=== PATIENT | male | born 1950 | race Caucasian/White ===

== ENCOUNTER → 2018-05-31 | Outpatient (CLI) | payer MEDICARE, OTHER ==
[2018-03-08 13:16] VITALS: BP 110/70
[~2018-05-31] MED LIST: DOXY100C2 PO; MELO15TA23 PO; PANT40GR PO; SIMV40TA3 PO; TAMS0.4C2 PO; VARE1TAB21 PO
--- NOTE | 2018-06-01 12:53 | KCIC ---
Examination: MRI of the left shoulder without contrast HISTORY: History of the tear of the left rotator cuff, left shoulder pain COMPARISON: None available TECHNIQUE: Multidetector, multisequence MR imaging of the left shoulder were performed with contrast. Findings: The long head of the biceps tendon is within the bicipital groove. There is moderate increased signal identified in the intra-articular portion of the biceps tendon likely tendinosis. Examination is very limited due to significant motion artifact. There is increased T2 signal identified in the supraspinatus, infraspinous tendon likely tendinosis. The anterior fibers of the supraspinatus tendon appear intact however the posterior half of the supraspinatus tendon and the anterior one third of the infraspinatus tendons are torn. . There is a mild superior translation of the humerus head in relation to glenoid. Moderate degenerative changes identified in the glenohumeral joint. There is a fatty atrophic changes with muscle bulk loss identified in the supraspinatus, infraspinous muscles. There is obscuration of fat in the rotator interval. The acromion is type II. Impression: 1. There is likely high-grade partial tear of the supraspinatus, infraspinatus tendons. Examination is difficult due to motion artifact. There is fatty atrophic changes and muscle bulk loss identified in the supraspinatus, infraspinatus muscles. There is a superior translation of the humerus head in relation to the glenoid. 2. Obscuration of fat in the rotator interval likely adhesive capsulitis. 3. Moderate degenerative changes identified in the acromioclavicular joint, glenohumeral joint. Electronically signed by: Brent Pantoja MD (06/01/2018 12:50 PM) [id number]
== END | disposition home or self-care (01) ==
LOC: KCIC MRI 15:03
PROVIDERS: ATTEND Orthopaedic Surgery
DX: S46.012D Strain of muscle(s) and tendon(s) of the rotator cuff of left shoulder, subsequent encounter (principal); M19.012 Primary osteoarthritis, left shoulder; X58.XXXD Exposure to other specified factors, subsequent encounter
CPT/HCPCS: 73221

== ENCOUNTER 2020-12-23 06:05 | Day surgery (SDC) | payer MEDICARE, OTHER ==
[~2020-12-23] VITALS: Ht 185.4 cm; Wt 97.7 kg
[~2020-12-23 06:05] MED LIST changes: +SIMV40TA18 PO; -SIMV40TA3 PO
[2020-12-23 06:24] VITALS: BP 102/72
[2020-12-23] MEDS ORDERED: LIDOCAINE 2% PF 5 ML VIAL. ONE (06:45)
[2020-12-23] MEDS ORDERED: PROPOFOL 10 MG/ML (20ML) VIAL. IV ONE (06:45)
[2020-12-23] MEDS ORDERED: IV RINGERS,LACTATED 1000ML 1,000 ML IV SCH (07:00)
[2020-12-23 07:55] VITALS: BP 100/73
== END 2020-12-23 08:15 | disposition home or self-care (01) ==
LOC: ENDOS 06:05
PROVIDERS: ATTEND Internal Medicine Gastroenterology
DX: R10.11 Right upper quadrant pain (principal); K64.0 First degree hemorrhoids; K57.30 Diverticulosis of large intestine without perforation or abscess without bleeding; K44.9 Diaphragmatic hernia without obstruction or gangrene; K31.89 Other diseases of stomach and duodenum; K63.89 Other specified diseases of intestine; E78.00 Pure hypercholesterolemia, unspecified; J44.9 Chronic obstructive pulmonary disease, unspecified; K21.9 Gastro-esophageal reflux disease without esophagitis; M19.90 Unspecified osteoarthritis, unspecified site; Z87.891 Personal history of nicotine dependence; Z86.010 Personal history of colon polyps; Z79.899 Other long term (current) drug therapy; Z98.890 Other specified postprocedural states
CPT/HCPCS: 43235; 45378; J2704

== ENCOUNTER → 2021-06-21 | Outpatient (CLI) | payer MEDICARE, OTHER ==
[~2021-06-21] MED LIST changes: -DOXY100C2 PO; +DOXY100C3 PO
--- NOTE | 2021-06-21 15:08 | RAD ---
EXAM: Cervical spine MRI without contrast. HISTORY: Pain. TECHNIQUE: Multiplanar, multisequence magnetic resonance imaging of the cervical spine was performed without contrast. COMPARISON: None. FINDINGS: There is mild multilevel degenerative listhesis. There is cervical hyperlordosis due to tho racic kyphosis. There is chronic mild decreased vertebral body height at C6, and to a lesser extent, C7 and C5. There is a mild chronic anterior wedge deformity of T2. There are mild chronic endplate de pressions at multiple levels. There is no acute or subacute fracture. There is no suspicious osseous lesion. There is multilevel endplate remodeling and facet arthropathy. No spinal cord lesion is seen. There is an incidental left maxillary sinus mucous retention cyst and mucosal thickening or mucus re tention cyst within the sphenoid sinus. At C2-C3, there is a disc bulge. There is no stenosis. At C3-C4, there is a left paracentral disc protrusion superimposed on and endplate remodeling. There is moderate left greater than right facet arthropathy and fluid within the left greater than right fa cet joint. There is associated marrow edema associated with the left facet joint. There is left uncov ertebral arthropathy. There is moderate to severe right and severe left foraminal stenosis. There is mild central canal stenosis measuring 8.1 mm in anterior posterior dimension. At C4-C5, there is endplate remodeling. There is mild pleural facet arthropathy. There is mild right and moderate to severe left foraminal stenosis. There is mild central canal stenosis measuring 8.8 mm in anterior posterior dimension. At C5-C6, there is a posterior central disc protrusion superimposed on endplate remodeling. There is moderate right and severe left facet arthropathy. There is uncovertebral arthropathy. There is modera te bilateral foraminal stenosis. At C6-C7, there is a posterior central disc protrusion superimposed on endplate remodeling. There is moderate bilateral facet arthropathy. There is moderate left foraminal stenosis. IMPRESSION: 1. Multilevel degenerative change throughout the cervical spine, described in detail above. This resu lts in moderate to severe right and severe left foraminal and mild central canal stenosis at C3-C4, m ild right and moderate to severe left foraminal and mild central canal stenosis at C4-C5, moderate bi lateral foraminal stenosis at C5-C6 and moderate left foraminal stenosis at C6-C7. 2. Marrow edema associated with the left facet joint at C3-C4 and small amount of fluid within the le ft greater than right facet joint at this level, likely degenerative/inflammatory in etiology. There is no suspicious osseous lesion or acute or subacute fracture. 3. Chronic appearing decreased vertebral body height at multiple levels. Electronically signed by: Alayna Coburn MD (06/21/2021 3:05 PM) [id number]
== END ==
LOC: MRI 12:47
PROVIDERS: ATTEND Family Medicine
DX: M47.812 Spondylosis without myelopathy or radiculopathy, cervical region (principal); M48.02 Spinal stenosis, cervical region; R60.0 Localized edema; M43.12 Spondylolisthesis, cervical region; M50.21 Other cervical disc displacement, high cervical region; M48.8X2 Other specified spondylopathies, cervical region
CPT/HCPCS: 72141

== ENCOUNTER → 2021-07-16 | Outpatient (CLI) | payer MEDICARE, OTHER ==
[~2021-07-16] MED LIST changes: +ASPI-424 PO; +CAPE500T PO; +CAPE500T13 PO; +IOHEXOL 180 MG/ML 10 ML VIAL. ONE; +UBID200C7 PO; +methylPREDNISolone ACETATE 80 MG/ML VIAL. ONE
--- NOTE | 2021-07-16 14:07 | PDOC4 ---
Procedure Note: ICD 10 Code: ICD 10 Code: M54.12 M50 0.30 M48.02 Procedure Note: Patient was consented for cervical epidural steroid action with fluoroscopic guidance. Risks were discussed including but not limited to: Bleeding, infection, possibility of epidural hematoma and subsequent neurological compromise, dural puncture, headaches, spinal cord and/or nerve damage, side effects of steroid medication, and poor results regarding pain control. Patient understands and wished to proceed. Procedure cervical epidural steroid injection at the C6-7 level, using local an esthetic under sterile prep and drape using C-arm fluoroscopic guidance under local anesthesia medications injected ;120 mg Depo-Medrol +5 mL normal saline and 2 mL contrast; condition at discharge is stable patient tolerated procedure well. and had no complications HITESH NELSON MD Jul 16, 2021 14:07
--- NOTE | 2021-07-16 14:07 | PDOC1 ---
INITIAL PAIN CONSULT DATE OF SERVICE: DOS: DATE: 07/16/21 TIME: 14:00 CHIEF COMPLAINT: Chief Complaint: Neck and bilateral shoulder and upper extremity pain HISTORY OF PRESENT ILLNESS: 71-year-old male presents with history of pain base the neck and upper shoulders occasionally radiates to upper extremities mostly in the neck and upper shoulders as well as causing some headaches patient reports is been going on for about 10 months without the result of any specific injury or accident that he is aware of just pain began to return patient had multiple other medical issues he was dealing with at the time such as pancreatic cancer and abdominal aortic aneurysm both of which have been surgically repaired and resected patient still undergoing a chemotherapy as well as oral chemotherapy patient reports pain in the base the neck [place] rating to the shoulders bilaterally essentially equal right to left worse with repetitive motions lifting items straining looking up for period of time or looking down for period of time such as when he is reading patient reports it generally does not awaken him sleep at night is better with sitting and supporting his neck and his head he is having difficulty trying to find a comfortable pillow but prefers a smaller pillow and that seems to be more comfortable for him. Patient reports does not affect his bowel bladder control or his ability to walk but is tender with all these activities patient did have MRI scan of the cervical spine showing multilevel degenerative change throughout the cervical spine with moderate to severe right and severe left foraminal and mid central canal stenosis C3-4 mild right and moderate to severe left foraminal and mild central canal stenosis at C4-5 with moderate bilateral foraminal stenosis C5-6 and moderate left foraminal stenosis at C6-7. Patient rates his disability rating 0-10 10 endorses a 2 with family home possibilities recreation social activity sexual behavior self-care and life support activities. Patient reports no loss of motor function but some fatigability in the shoulders with repetitive motion again right central equal to left. PAST MEDICAL HISTORY: PMH: Hearing loss, arthritis, stage II pancreatic cancer, cardiovascular disease PREVIOUS SURGERIES: Past Surgical Hx: Pancreatic tail resection, AAA stenting, right rotator cuff repair, left rotator cuff repair CURRENT MEDICATIONS: Current Meds: Active Scripts Medications Dose Route/Sig Max Daily Dose Days Date Category Adult Low Dose Aspirin Ec (Aspirin) 81 Mg Tablet.dr 1 Tab PO DAILY 30 07/16/21 Reported Capecitabine 500 Mg Tablet 1,500 Mg PO HS 1/14/22 Reported Xeloda (Capecitabine) 500 Mg Tablet 2,000 Mg PO DAILY08 07/16/21 Reported Co Q-10 (Ubidecarenone) 200 Mg Capsule 100 Mg PO DAILY 07/16/21 Reported Tamsulosin Hcl 0.4 Mg Cap.er.24h 1 Cap PO DAILY 03/08/18 Reported Meloxicam 15 Mg Tablet 1 Tab PO DAILY 03/08/18 Reported Protonix Packet (Pantoprazole Sodium) 40 Mg Granpkt.dr 40 Mg PO DAILY 03/08/18 Reported Doxycycline Hyclate 100 Mg Capsule 100 Mg PO DAILY 03/08/18 Reported Simvastatin 40 Mg Tablet 1 Tab PO QHS 03/08/18 Reported ALLERGIES; Allergies: Coded Allergies: No Known Drug Allergies (Unverified , 03/08/18) FAMILY HISTORY: Family Hx: No major medical problems or conditions that he is aware of. SOCIAL HISTORY: Social Hx: Patient does not drink alcohol quit smoking 4 months ago previously [id number] history plus does not use any illegal illicit recreational drugs is lives with his spouse lives locally in [facility], and is currently retired. REVIEW OF SYSTEMS: ROS: Positive for those items mentioned in history of present illness, all systems are reviewed, otherwise negative ,and are complete full and well-documented on patient's chart. PHYSICAL EXAM: VS: Blood pressure is 138/97 pulse 93 respirations 18 temperature 98.2 F height 6 foot weight is 210 pounds PE: PHYSICAL EXAMINATION: GENERAL: The patient is awake, alert, oriented, appropriate, very pleasant in demeanor HEENT: Shows normocephalic, atraumatic. Extraocular movements are intact and symmetrical. Oral cavity: Mucous membranes moist and pink. NECK: Shows anterior throat supple without palpable lymphadenopathy noted. Swallow reflex symmetrical. CHEST: Shows normal on inspection. Breath sounds are clear bilaterally, coarse but no rales rhonchi or wheezes auscultated. HEART: Shows S1, S2 clear. No murmurs auscultated. ABDOMEN: Soft, nontender, nondistended. No palpable organomegaly is noted. No rebound or guarding demonstrated. BACK: Shows spine grossly in the midline. Normal-appearing cervical lordotic curvature. Cervical paraspinous muscles show symmetrical on inspection, on palpation some moderate tenderness diffusely throughout the upper middle lower decrease the paraspinous muscles right and left also in the superior medial trapezius but without trigger points without atrophy when hypertrophy. Patient shows full rotation motion cervical spine both laterally with some moderate tenderness with far right lateral rotation but not with extension or flexion or left lateral rotation. There is slightly increased thoracic kyphosis, some minor flattening of the lumbar lordotic curvature. EXTREMITIES: Upper extremities show deep tendon reflexes 2+ in the patellar and tendo calcaneus tendons. Motor exam is 5 on a scale of 5 with right dorsiflexion, extension, quadriceps and hamstring flexion and 5/5 on the left. Peripheral pulses are 2+ posterior tibial. No peripheral edema is noted bilaterally. Upper extremities are warm and dry to touch, equal in color and appearance. Shoulder shrug strong intact without loss strength on resistance bilaterally as is abduction of the shoulder 90 degrees bilaterally without loss of strength on resistance. SKIN: Shows warm and dry, good turgor. No edema. No sores, rashes or bruising throughout. IMPRESSION: Impression: 71-year-old male with approximate 10-month history increasing pain base the neck shoulders and occasionally upper extremities MRI scan cervical spine as noted Arthritis Cardiovascular disease Stage II pancreatic cancer undergoing chemotherapy Plan: Options were discussed with patient including conservative managements physical therapy interventional techniques. Patient like to pursue inte rventional techniques. We discussed a cervical epidural steroid injections description as well as anatomical models to describe the procedure. Risks were discussed including but not limited to: Bleeding, infection, possibility of epidural hematoma and subsequent neurological compromise, dural puncture, headaches, spinal cord and/or nerve damage, side effects of steroid medication, and poor results regarding pain control. Patient understands and wished to proceed. Patient will return to the clinic in approximate 2 weeks for follow- up, was counseled as to return appointment, activity level, and side effect to be aware of. Procedure cervical epidural steroid injection at the C6-7 level, using local anesthetic under sterile prep and drape using C-arm fluoroscopic guidance under local anesthesia medications injected ;120 mg Depo-Medrol +5 mL normal saline and 2 mL contrast; condition at discharge is stable patient tolerated procedure well. and had no complications HITESH NELSON MD Jul 16, 2021 14:07
== END | disposition home or self-care (01) ==
LOC: PNCL 10:02
PROVIDERS: ATTEND Anesthesiology
DX: M50.10 Cervical disc disorder with radiculopathy, unspecified cervical region (principal); M48.02 Spinal stenosis, cervical region; M54.12 Radiculopathy, cervical region; M25.512 Pain in left shoulder; M25.511 Pain in right shoulder; M19.90 Unspecified osteoarthritis, unspecified site; J44.9 Chronic obstructive pulmonary disease, unspecified; E78.00 Pure hypercholesterolemia, unspecified; K21.9 Gastro-esophageal reflux disease without esophagitis; Z87.891 Personal history of nicotine dependence; Z79.899 Other long term (current) drug therapy; Z98.890 Other specified postprocedural states
CPT/HCPCS: 62321; G0463; J1040; Q9965

== ENCOUNTER → 2021-07-30 | Outpatient (CLI) | payer MEDICARE, OTHER ==
--- NOTE | 2021-07-30 10:37 | PDOC ---
Progress Note - Pain Clinic Date of Service: DOS: DATE: 07/30/21 TIME: 10:33 Diagnosis: Dx: Cervical radiculopathy with cervical degenerative disease and cervical spinal stenosis Peripheral neuropathy History or Present Illness: HPI: 71-year-old male returns for follow-up status post cervical epidural steroid injection x1. Patient reports about 50% improvement initially but now pain returning down to about 20% improvement over the past few days patient reports has been returning in the base the neck and shoulders bilaterally radiating the upper extremities occasionally but mostly staying in the shoulders at this point as well as pain in the neck itself patient reports initially doing much better with distance walking doing household activities traveling with greater ease and comfort and sleeping better but over the past few days that his sleeping is become more difficult and patient is planning to start sleeping in the recliner after today's visit to see if this may help keep the pain down as well. Patient reports pain is a 5 on a scale 10 is worse over the past week for an average 3 to [place] is a 4 today. Patient reports it is dull alternating with type pain the base of neck and shoulder shooting and burning in the shoulders themselves as well. Patient also reports significant burning and tingling in the bilateral feet which he believes is coming from his chemotherapy agent that he is taking f or his pancreatic cancer treatment. Patient reports significant burning tingling in a stocking distribution of his feet as he describes it. We discussed options with this as far as topical creams as well as oral analgesics patient would like to discuss this further with his oncologist as well and we recommended gabapentin which may be helpful with this while he is taking his chemotherapy agents and possibly afterwards as well. Physical Exam: VS: Blood pressure is 114/83 pulse 90 respirations 18 temperature 97.9 F height is 6 foot 1 inch weight is 211 pounds PE: PHYSICAL EXAMINATION: GENERAL: The patient is awake, alert, oriented, appropriate, very pleasant in demeanor HEENT: Shows normocephalic, atraumatic. Extraocular movements are intact and symmetrical. Oral cavity: Mucous membranes moist and pink. NECK: Shows anterior throat supple without palpable lymphadenopathy noted. Swallow reflex symmetrical. CHEST: Shows normal on inspection. Breath sounds are clear bilaterally, no rales rhonchi or wheezes auscultated. HEART: Shows S1, S2 clear. No murmurs auscultated. ABDOMEN: Soft, nontender, nondistended. No palpable organomegaly is noted. BACK: Shows spine grossly in the midline. Normal-appearing cervical lordotic curvature. Cervical paraspinous muscles show symmetrical inspection, palpation some moderate tenderness diffusely bilaterally throughout the upper middle lower decrease the paraspinous muscles but without specific trigger points atrophy or hypertrophy. Patient shows good rotation of motion cervical spine slightly guarded with left and right lateral rotation as well as extension but not with forward flexion. There is slightly increased thoracic kyphosis, some minor flattening of the keanu mbar lordotic curvature. EXTREMITIES: Upper extremities show deep tendon reflexes 2+ in the biceps and tricep tendons. Motor exam is 5 on a scale of 5 with right recreation clerk, biceps and triceps flexion and 5/5 on the left. Peripheral pulses are 2+ radial. No peripheral edema is noted bilaterally. Upper extremities are warm and dry to touch, equal in color and appearance. SKIN: Shows warm and dry, good turgor. No edema. No sores, rashes or bruising throughout. Procedure: Procedure: Options were discussed with the patient. Patient's old chart was reviewed his current medication regimen updated current review of systems updated today as well. We will proceed with a cervical epidural steroid injection today with fluoroscopic guidance. Risks were discussed including but not limited to: Bleeding, infection, possibility of epidural hematoma and subsequent neurological compromise, dural puncture, headaches, spinal cord and/or nerve damage, side effects of steroid medication, and poor results regarding pain control. Patient understands and wished to proceed. Patient will return to the clinic in approximately 2 weeks for follow-up, was counseled as to return appointment, activity level, and side effects to be aware of. Medication Injected: Med Injected: Procedure cervical epidural steroid injection at the C6-7 level, using local anesthetic under sterile prep and drape using C-arm fluoroscopic guidance under local anesthesia medications injected ;120 mg Depo-Medrol +5 mL normal saline and 2 mL contrast; condition at discharge is stable patient tolerated procedure well. and had no complications Condition at Discharge: Condition at Discharge: Condition at discharge stable, paced tolerated the procedure well and had no complications. HITESH NELSON MD Jul 30, 2021 10:37
--- NOTE | 2021-07-30 10:38 | PDOC4 ---
Procedure Note: ICD 10 Code: ICD 10 Code: M54.12 M50.30 M4 8.02 Procedure Note: Patient was consented for cervical epidural steroid injection with fluoroscopic guidance. Risks were discussed including but not limited to: Bleeding, infection, possibility of epidural hematoma and subsequent neurological compromise, dural puncture, headaches, spinal cord and/or nerve damage, side effects of steroid medication, and poor results regarding pain control. Patient understands and wished to proceed. Procedure cervical epidural steroid injection at the C6-7 level, using local anesthetic under sterile prep and drape using C-arm fluoroscopic guidance under local anesthesia medications injected ;120 mg Depo-Medrol +5 mL normal saline and 2 mL contrast; condition at discharge is stable patient tolerated procedure well. and had no complications HITESH NELSON MD Jul 30, 2021 10:38
== END | disposition home or self-care (01) ==
LOC: PNCL 09:53
PROVIDERS: ATTEND Anesthesiology
DX: M50.10 Cervical disc disorder with radiculopathy, unspecified cervical region (principal); M48.02 Spinal stenosis, cervical region; M54.12 Radiculopathy, cervical region; G62.9 Polyneuropathy, unspecified; J44.9 Chronic obstructive pulmonary disease, unspecified; K21.9 Gastro-esophageal reflux disease without esophagitis; E78.00 Pure hypercholesterolemia, unspecified; M19.90 Unspecified osteoarthritis, unspecified site; Z79.82 Long term (current) use of aspirin; Z79.899 Other long term (current) drug therapy; Z87.891 Personal history of nicotine dependence; Z98.890 Other specified postprocedural states
CPT/HCPCS: 62321; J1040; Q9965

== ENCOUNTER → 2021-08-13 | Outpatient (CLI) | payer MEDICARE, OTHER ==
[~2021-08-13] MED LIST changes: +DEXAMETHASONE PRES.FREE 10 MG/ML VIAL. ONE; +DEXAMETHASONE SOD PHOS 20 MG/5 ML VIAL. ONE; -methylPREDNISolone ACETATE 80 MG/ML VIAL. ONE
--- NOTE | 2021-08-13 11:53 | PDOC ---
Progress Note - Pain Clinic Date of Service: DOS: DATE: 08/13/21 TIME: 11:49 Diagnosis: Dx: Cervical radiculopathy with cervical degenerative disease and cervical spinal stenosis History or Present Illness: HPI: 71-year-old male returns for follow-up status post cervical epidural steroid injection with about 40% improvement overall patient reports still pain the base the neck and shoulder the upper extremities but not as much radiation the upper extremities as he has had previously patient reports the arms are d oing fairly well but the neck and shoulders are in a complaint patient reports weather better there is still significantly painful patient rates them as a 3 on a scale 10 is worst least and average over the past week is a 3 out of 10 today. Patient reports dull pain the base the neck can be shooting and radiating sometimes stabbing. Patient reports no motor or sensory deficits still some peripheral neuropathy with the upper extremities as well. Patient is encouraged to discuss this with his oncologist as it is started after his chemotherapy treatments are started. We also discussed starting new medication of gabapentin he would like to discuss this with his pharmacy operations specialist first as well. Patient reports no new motor or sensory deficits no bowel or bladder incontinence. Physical Exam: VS: Blood pressure is 108/61 pulse 77 respirations 18 temperature 98.6 F height is 6 foot 1 inch weight is 211 pounds. PE: PHYSICAL EXAMINATION: GENERAL: The patient is awake, alert, oriented, appropriate, very pleasant in demeanor HEENT: Shows normocephalic, atraumatic. Extraocular movements are intact and symmetrical. NECK: Shows anterior throat supple without palpable lymphadenopathy noted. Swallow reflex symmetrical. CHEST: Shows normal on inspection. Breath sounds are clear bilaterally, distant but no rales rhonchi or wheezes auscultated. HEART: Shows S1, S2 clear. No murmurs auscultated. ABDOMEN: Soft, nontender, nondistended. No palpable organomegaly is noted. BACK: Shows spine grossly in the midline. Normal-appearing cervical lordotic curvature. Cervical paraspinous muscles show symmetrical inspection, on palpation some moderate tenderness diffusely bilaterally diffusely without significant radiation the middle and lower distribution paraspinous musculature as well as in the superior medial trapezius without trigger points or radiation. Patient shows full rotation motion cervical spine both laterally as well as full extension full forward flexion with some moderate pain with right left lateral rotation only but no radiation bilaterally. There is slightly increased thoracic kyphosis, some minor flattening of the lumbar lordotic curvature. EXTREMITIES: Upper extremities show deep tendon reflexes 2 in the biceps and triceps tendons. Motor exam is 5 on a scale of 5 with right medical apparatus model maker, biceps and triceps flexion and 5/5 on the left. Peripheral pulses are 2+ radial. No peripheral edema is noted bilaterally. Upper extremities are warm and dry to touch, equal in color and appearance. Shoulder shrug strong intact without loss strength on resistance bilaterally. SKIN: Shows warm and dry, good turgor. No edema. No sores, rashes or bruising throughout. Procedure: Procedure: Options discussed with patient. Patient's chart was reviewed his current medication regimen updated current review of systems updated today as well. We will proceed with a cervical epidural steroid injection today with fluoroscopic guidance. Risks were discussed including but not limited to: Bleeding, infection, possibility of epidural hematoma and subsequent neurological compromise, dural puncture, headaches, spinal cord and/or nerve damage, side effects of steroid medication, and poor results regarding pain control. Patient understands and wished to proceed. Return to clinic in approximately 2 weeks for follow-up, was counseled as to return appointment, activity level, and side effect to be aware of. Medication Injected: Med Injected: Procedure cervical epidural steroid injection at the C6-7 level, using local anesthetic under sterile prep and drape using C-arm fluoroscopic guidance under local anesthesia medications injected ; 20 mg Decadron +5 mL normal saline and 2 mL contrast; condition at discharge is stable patient tolerated procedure well. and had no complications Condition at Discharge: Condition at Discharge: Condition at discharge stable, patient tolerated procedure well and had no comp lications HITESH NELSON MD Aug 13, 2021 11:53
--- NOTE | 2021-08-13 11:54 | PDOC4 ---
Procedure Note: ICD 10 Code: ICD 10 Code: M54.12 M50.30 M4 8.02 Procedure Note: Patient was consented for cervical epidural steroid injection with fluoroscopic guidance. Risks were discussed including but not limited to: Bleeding, infection, possibility of epidural hematoma and subsequent neurological compromise, dural puncture, headaches, spinal cord and/or nerve damage, side effects of steroid medication, and poor results regarding pain control. Patient understands and wished to proceed. Procedure cervical epidural steroid injection at the C6-7 level, using local anesthetic under sterile prep and drape using C-arm fluoroscopic guidance under local anesthesia medications injected ; 10 mg Decadron +5 mL normal saline and 2 mL contrast; condition at discharge is stable patient tolerated procedure well. and had no complications HITESH NELSON MD Aug 13, 2021 11:54
== END | disposition home or self-care (01) ==
LOC: PNCL 10:06
PROVIDERS: ATTEND Anesthesiology
DX: M50.10 Cervical disc disorder with radiculopathy, unspecified cervical region (principal); M48.02 Spinal stenosis, cervical region; M54.12 Radiculopathy, cervical region; E78.00 Pure hypercholesterolemia, unspecified; J44.9 Chronic obstructive pulmonary disease, unspecified; K21.9 Gastro-esophageal reflux disease without esophagitis; M19.90 Unspecified osteoarthritis, unspecified site; Z79.82 Long term (current) use of aspirin; Z79.899 Other long term (current) drug therapy; Z87.891 Personal history of nicotine dependence; Z98.890 Other specified postprocedural states
CPT/HCPCS: 62321; J1100; Q9965; 62323